=== PATIENT | female | born 1970 | race American Indian/Alaskan Native ===

== ENCOUNTER 2016-07-24 14:57 | Outpatient (CLI) | payer BC ==
--- NOTE | 2016-07-24 15:20 | Mammography Report ---
Diagnostic right mammogram. History: Recall for right asymmetric density. Findings: The spot compression images demonstrate effacement of the previously noted soft tissue density. The 90 degree view also demonstrates no evidence of an abnormal density or mass. Impression: No suspicious findings. BI-RADS code: 1. Recommendation: Annual screening.
== END 2016-07-24 14:58 | disposition home or self-care (01) ==
LOC: SPVWC 14:57
PROVIDERS: ATTEND Obstetrics & Gynecology
DX: R92.8 Other abnormal and inconclusive findings on diagnostic imaging of breast (principal)
CPT/HCPCS: G0206-RT

== ENCOUNTER 2017-07-16 11:40 | Outpatient (CLI) | payer BC ==
[2017-07-16 12:37] LABS: Blood Urea Nitrogen 10 mg/dL (7-17)
--- NOTE | 2017-07-16 15:20 | Cat Scan Report ---
CT of the abdomen and pelvis with IV and oral contrast. History: Abdominal mass. Findings: The liver, spleen, pancreas, and gallbladder appear normal. The kidneys are normal in size and configuration. The huge uterine mass with multilobulated contour and heterogeneous density characteristics is relatively stable in size compared to the previous study on May 27, 2016. Slight increase in the number of internal calcifications is present. The maximum transverse dimension is 25 cm, and the maximum cephalocaudad dimension is 26 cm. The adnexal regions are unremarkable. No abnormal fluid collections are seen. Impression: Stable very large fibroid uterus with mild increase in calcifications. Otherwise no new findings.
--- NOTE | 2017-07-16 16:52 | Mammography Report ---
BILATERAL DIGITAL SCREENING MAMMOGRAM with CAD: 07/16/17 11:40:00 CLINICAL: Routine screening. COMPARISON: 06/27/16 FINDINGS: There are bilateral scattered areas of fibroglandular density.No mass, architectural distortion or suspicious calcifications. IMPRESSION: No mammographic evidence of malignancy. BI-RADS CATEGORY: 1 -- Negative RECOMMENDATION: Routine mammographic screening in one year. COMMENT: Patient follow-up letters are generated by our [employer] application.
== END 2017-07-16 11:41 | disposition home or self-care (01) ==
LOC: MAMMO 11:40
PROVIDERS: ATTEND Obstetrics & Gynecology
DX: Z12.31 Encounter for screening mammogram for malignant neoplasm of breast (principal); D25.9 Leiomyoma of uterus, unspecified; R19.00 Intra-abdominal and pelvic swelling, mass and lump, unspecified site; Z80.3 Family history of malignant neoplasm of breast
CPT/HCPCS: 36415; 74177; 77067; 82565; 84520; Q9967